=== PATIENT | male | born 1935 | race Caucasian/White ===

== ENCOUNTER 2017-02-09 14:37 | Observation (INO) | payer MEDICARE, BC, MEDICAID ==
[~2017-02-09 14:37] MED LIST: ACETAMINOPHEN325 M1 PO; ACETAMINOPHEN325 M2 PO; ADULT ASPIRIN81 MG PO; ALBUTEROL SULF8.5 GM IH; ALPHAGAN P10 ML OP; ALPHAGAN P5 M1 OP; ALPHAGAN P5 ML EACH EYE; ANTACID500 MG PO; ASPIRIN81 M1 PO; BAYER81 MG PO; BROVANA15 MCG/22 INH; CERTAVITE-ANTI1 EACH PO; CETAPHIL THERAP TP; DELTASONE20 MG PO; DORZOLAMIDE HCL10 M1 OP; DORZOLAMIDE HCL10 ML OP; FLOMAX0.4 M1 PO; FOLIC ACID1 M1 PO; FOLIC ACID1 MG PO; HALLS3.2 MG MM; HUMALOG100 UNITS/ SC; IPRAT-ALBUT 0.5-3 ML AERO NEB; LANTUS100 UNITS/ SC; LEVAQUIN500 M1 PO; LEVAQUIN750 MG PO; LORCET 5-325 M1 EAC1 PO; LOTREL 5-10 MG1 EACH PO; LUMIGAN2.5 M1 OP; LUMIGAN2.5 M2 EACH EYE; LUMIGAN2.5 M2 OP; MELOXICAM15 M1 PO; MIRALAX17 G1 PO; MIRALAX17 G2 PO; NAPROSYN500 MG PO; NASAL SPRAY30 M3; NON-ASPIRIN PA325 M1 PO; NORCO 5/325 TAB1 TAB PO; NORVASC5 M1 PO; NORVASC5 M2 PO; NOVOLOG100 U/M; NOVOLOG100 U/M SQ; NOVOLOG100 UNITS/; PANTOPRAZOLE SO40 M3 PO; PROMETHAZINE-P118 ML PO; PROTONIX40 M2 PO; PULMICORT0.5 MG/22 INH; TAMSULOSIN HCL0.4 M1 PO; TAMSULOSIN HCL0.4 MG PO; TOVIAZ8 M1 PO; TRAMADOL HCL50 M2 PO; TROSPIUM CHLORI20 M1 PO; TRUSOPT10 ML EACH EYE; TYLENOL325 M2 PO; VESICARE5 M1 PO; VIT B-6 PO; VITAMIN B-121000 MC1 PO; VITAMIN B-650 M2 PO; VITAMIN B121000 MCG PO; XARELTO20 M1 PO; XARELTO20 MG PO
[2017-02-09] MEDS ORDERED: ALPHAGAN P5 M1 EACH EYE (14:42)
[2017-02-09] MEDS ORDERED: NORVASC5 M2 PO (14:42)
[2017-02-09] MEDS ORDERED: ARICEPT5 M1 PO (14:42)
[2017-02-09] MEDS ORDERED: BENAZEPRIL HCL10 M2 PO (14:42)
[2017-02-09] MEDS ORDERED: CERTAVITE-ANTI1 EACH PO (14:42)
[2017-02-09] MEDS ORDERED: TRUSOPT10 ML EACH EYE (14:43)
[2017-02-09] MEDS ORDERED: FOLIC ACID1 M1 PO (14:43)
[2017-02-09] MEDS ORDERED: LUMIGAN2.5 M2 EACH EYE (14:44)
[2017-02-09] MEDS ORDERED: MOBIC15 M2 PO (14:44)
[2017-02-09] MEDS ORDERED: VESICARE5 M1 PO (14:45)
[2017-02-09] MEDS ORDERED: PROTONIX40 M2 PO (14:45)
[2017-02-09] MEDS ORDERED: FLOMAX0.4 M1 PO (14:45)
[2017-02-09] MEDS ORDERED: VITAMIN B-121000 MC1 PO (14:46)
[2017-02-09] MEDS ORDERED: VITAMIN B-650 M2 PO (14:46)
[2017-02-09] MEDS ORDERED: IPRAT-ALBUT 0.5-3 ML INH ×2 (14:49→14:52)
[2017-02-09] MEDS ORDERED: HUMALOG100 UNIT/2 SC (14:49)
[2017-02-09] MEDS ORDERED: LANTUS SOL100 UNIT/1 SC (14:50)
[2017-02-09] MEDS ORDERED: XARELTO20 M1 PO (14:51)
[2017-02-09] MEDS ORDERED: NASAL SPRAY ORI30 ML (14:51)
[2017-02-09] MEDS ORDERED: MAPAP325 M2 PO (14:52)
[2017-02-09 15:35] LABS: BASO % 0.3 % (0-2); EOS % 1.1 % (0-7); EOSINOPHIL ABSOLUTE COUNT 0.1 tho/cmm (0.0-0.7); HCT-HEMATOCRIT 34.6 % (36.0-53.5); HGB-HEMOGLOBIN 9.8 gm/dl (13.5-17.0); IMMATURE GRANULOCYTES ABSOLUTE 0.06 tho/cmm (0-0.03); IMMATURE GRANULOCYTES PERCENT 0.5 % (0-0.3); LYMPH % 3.8 % (20-45); LYMPH ABSOLUTE COUNT 0.4 tho/cmm (0.8-4.5); MCH (MEAN CORPUSCULAR HGB) 22.8 pg (28.0-32.0); MCV (MEAN CELL VOLUME) 80.5 fl (82.0-96.0); MEAN PLATELET VOLUME 10.3 cmc (9.4-12.4); MONO % 7.6 % (0-12); MONOCYTE ABSOLUTE COUNT 0.9 tho/cmm (0.0-1.2); NEUTROPHIL ABSOLUTE COUNT 9.9 tho/cmm (1.6-8.0); NEUTROPHIL-AUTOMATED 9.9 tho/cmm (1.6-8.0); NEUTROPHILS % 86.7 % (40-80); PLATELET COUNT 276 tho/cmm (150-450); WHITE BLOOD COUNT 11.4 tho/cmm (4.0-10.0)
[2017-02-09 15:39] LABS: MCHC MEAN CORPUSCULAR HGB CONC 28.3 % (32.0-36.0)
[2017-02-09 15:50] LABS: ALB/GLOB RATIO 0.7 (0.8-2.0); ALBUMIN 3.4 g/dl (3.5-5.0); ALKALINE PHOSPHATASE 112 U/L (33-138); ALT/SGPT 26 U/L (12-78); ANION GAP 13 mmol/L (0-20); AST/SGOT 29 U/L (10-40); BILIRUBIN,TOTAL 0.3 mg/dl (0.0-1.5); BLOOD UREA NITROGEN 12 mg/dl (6-24); CALCIUM 8.3 mg/dl (8.5-10.5); CARBON DIOXIDE-VENOUS 27 mmol/L (22-32); CHLORIDE 105 mmol/l (96-110); CREATININE 1.18 mg/dl (0.60-1.30); GLUCOSE 164 mg/dL (70-110); POTASSIUM 4.8 mmol/L (3.7-5.1); PROLACTIN 18 ng/ml (2.5-17.4); SODIUM 140 mmol/L (135-145); eGFR VALUE FOR BLACK 67 mL/Min
[2017-02-10 06:12] LABS: BASO % 0.3 % (0-2); EOS % 2.8 % (0-7); EOSINOPHIL ABSOLUTE COUNT 0.2 tho/cmm (0.0-0.7); HGB-HEMOGLOBIN 8.6 gm/dl (13.5-17.0); IMMATURE GRANULOCYTES ABSOLUTE 0.02 tho/cmm (0-0.03); IMMATURE GRANULOCYTES PERCENT 0.3 % (0-0.3); LYMPH % 16.8 % (20-45); LYMPH ABSOLUTE COUNT 1.1 tho/cmm (0.8-4.5); MCH (MEAN CORPUSCULAR HGB) 22.1 pg (28.0-32.0); MCV (MEAN CELL VOLUME) 79.7 fl (82.0-96.0); MEAN PLATELET VOLUME 9.4 cmc (9.4-12.4); MONO % 11.8 % (0-12); MONOCYTE ABSOLUTE COUNT 0.8 tho/cmm (0.0-1.2); NEUTROPHIL ABSOLUTE COUNT 4.4 tho/cmm (1.6-8.0); NEUTROPHIL-AUTOMATED 4.4 tho/cmm (1.6-8.0); PLATELET COUNT 270 tho/cmm (150-450); RED BLOOD COUNT 3.89 mil/cmm (4.40-5.70); RED CELL DISTRIBUTION WIDTH 16.8 % (12.4-16.4); WHITE BLOOD COUNT 6.5 tho/cmm (4.0-10.0)
[2017-02-10 06:17] LABS: MCHC MEAN CORPUSCULAR HGB CONC 27.7 % (32.0-36.0)
[2017-02-10 07:06] LABS: PROCALCITONIN 0.05 ng/ml (0.05-0.09)
[2017-06-07] MEDS ORDERED: COLACE100 M1 PO (03:13)
[2017-06-07] MEDS ORDERED: BREO ELLIPTA 21 EACH INH (03:13)
[2017-06-07] MEDS ORDERED: MUCINEX600 M1 PO (03:14)
[2017-06-07] MEDS ORDERED: CYCLOBENZAPRINE10 M1 PO (03:14)
[2017-06-07] MEDS ORDERED: NORCO 5-325 TA1 EACH PO (04:44)
[2017-06-26] MEDS ORDERED: GLUCAGON HCL1 MG IM/SC (08:51)
[2017-06-26] MEDS ORDERED: ALPHAGAN P5 ML OP (08:52)
[2017-06-26] MEDS ORDERED: HUMALOG100 UNITS/ SC ×2 (08:52→09:04)
[2017-06-26] MEDS ORDERED: LANTUS SOL100 UNIT/1 SC (08:52)
[2017-06-26] MEDS ORDERED: NORVASC5 M2 PO (08:53)
[2017-06-26] MEDS ORDERED: BENAZEPRIL HCL10 M2 PO (08:53)
[2017-06-26] MEDS ORDERED: BREO ELLIPTA 21 EACH INH (08:53)
[2017-06-26] MEDS ORDERED: DONEPEZIL HCL5 M2 PO (08:53)
[2017-06-26] MEDS ORDERED: CERTAVITE-ANTI1 EACH PO (08:53)
[2017-06-26] MEDS ORDERED: LUMIGAN2.5 M2 OP (08:54)
[2017-06-26] MEDS ORDERED: MELOXICAM15 M1 PO (08:54)
[2017-06-26] MEDS ORDERED: FOLIC ACID1 M1 PO (08:54)
[2017-06-26] MEDS ORDERED: TRUSOPT10 ML OP (08:54)
[2017-06-26] MEDS ORDERED: VESICARE5 M1 PO (08:55)
[2017-06-26] MEDS ORDERED: COLACE100 M1 PO (08:55)
[2017-06-26] MEDS ORDERED: PROTONIX40 M2 PO (08:55)
[2017-06-26] MEDS ORDERED: B-121000 MC2 PO (08:55)
[2017-06-26] MEDS ORDERED: FLOMAX0.4 M1 PO (08:55)
[2017-06-26] MEDS ORDERED: MUCINEX600 M1 PO (08:56)
[2017-06-26] MEDS ORDERED: PYRIDOXINE HCL50 M1 PO (08:56)
[2017-06-26] MEDS ORDERED: CALCIUM CARBON500 M2 PO (08:56)
[2017-06-26] MEDS ORDERED: FEROSUL325 M1 PO (08:56)
[2017-06-26] MEDS ORDERED: XARELTO20 M1 PO (08:56)
[2017-06-26] MEDS ORDERED: VIBRAMYCIN100 M1 PO (08:57)
[2017-06-26] MEDS ORDERED: NORCO 5-325 TA1 EACH PO ×2 (08:58→09:02)
[2017-06-26] MEDS ORDERED: ACETAMINOPHEN325 M2 PO (08:59)
[2017-06-26] MEDS ORDERED: BISCOLAX10 MG PR (09:00)
[2017-06-26] MEDS ORDERED: CYCLOBENZAPRINE10 M1 PO (09:00)
[2017-06-26] MEDS ORDERED: FLEET ENEMA133 ML PR (09:01)
[2017-06-26] MEDS ORDERED: MILK OF MAGNESIA PO (09:01)
[2017-06-26] MEDS ORDERED: IPRAT-ALBUT 0.5-3 ML NEB ×2 (09:02→09:03)
[2017-06-26] MEDS ORDERED: AFRIN30 ML (09:02)
[2017-06-26] MEDS ORDERED: ICY HOT BALM TP (09:04)
[2017-06-29] MEDS ORDERED: ULTRAM50 M1 PO (18:38)
[2017-06-29] MEDS ORDERED: POTASSIUM CHLO20 ME3 PO (18:40)
[2017-06-29] MEDS ORDERED: NOVOLOG100 UNITS/ SC (18:50)
[2017-07-07] MEDS ORDERED: LANTUS SOL100 UNIT/1 SC (15:04)
[2017-07-07] MEDS ORDERED: XALATAN2.5 M1 EACH EYE (15:10)
[2017-07-07] MEDS ORDERED: MACROBID 100 M100 M1 PO (15:14)
[2017-07-07] MEDS ORDERED: BREO ELLIPTA 21 EACH INH (15:14)
[2017-07-07] MEDS ORDERED: ANTIFUNGAL CREA14 G1 TOP (15:20)
[2017-07-10] MEDS ORDERED: CEFDINIR300 M1 PO (13:34)
[2017-07-10] MEDS ORDERED: CEFTRIAXON2000 MG/VI IV (13:35)
[2017-07-10] MEDS ORDERED: CULTURELLE1 EAC1 PO (13:36)
== END 2017-02-10 16:15 | disposition other institution (70) ==
LOC: EDMED 14:37 → EMR2 20:33 → 5WE 21:48
PROVIDERS: Emergency Medicine; ADMIT Family Medicine
DX: R55 Syncope and collapse (principal); I10 Essential (primary) hypertension; E11.9 Type 2 diabetes mellitus without complications; Z79.01 Long term (current) use of anticoagulants; Z79.4 Long term (current) use of insulin; Z79.1 Long term (current) use of non-steroidal anti-inflammatories (NSAID); Z79.899 Other long term (current) drug therapy; Z88.0 Allergy status to penicillin; Z91.040 Latex allergy status; Z87.891 Personal history of nicotine dependence
CPT/HCPCS: G0378; J1170; J2405; J7030; Q9967